=== PATIENT | male | born 1990 | race Two or more races ===

== ENCOUNTER 2019-02-13 22:33 | Emergency (ER) | payer OTHER ==
[~2019-02-13] VITALS: Ht 180.3 cm; Wt 70.3 kg
[2019-02-13 22:50] VITALS: BP 143/77
[2019-02-13] MEDS ORDERED: MAG HYDROX/AL HYDROX/SIMETH 30 ML UDC PO ONE (23:00)
[2019-02-13] MEDS ORDERED: MAG HYDROX/AL HYDROX/SIMETH 30 ML UDC ONE (23:00)
[2019-02-13] MEDS ORDERED: LIDOCAINE VISCOUS 2% UD 15 ML UDC MM ONE (23:00)
[2019-02-13] MEDS ORDERED: LIDOCAINE VISCOUS 2% UD 15 ML UDC ONE (23:00)
== END 2019-02-14 00:24 | disposition home or self-care (01) ==
LOC: ER 22:40
DX: K21.9 Gastro-esophageal reflux disease without esophagitis (principal); Z88.6 Allergy status to analgesic agent

== ENCOUNTER 2019-04-03 09:39 | Emergency (ER) | payer OTHER ==
[~2019-04-03] VITALS: Ht 180.3 cm; Wt 72.6 kg
[2019-04-03 09:55] VITALS: BP 136/91
== END 2019-04-03 11:16 | disposition home or self-care (01) ==
LOC: ER 09:42
DX: D21.6 Benign neoplasm of connective and other soft tissue of trunk, unspecified (principal); Z88.6 Allergy status to analgesic agent
CPT/HCPCS: 71100-TC